=== PATIENT | female | born 1950 | race American Indian/Alaskan Native ===

== ENCOUNTER 2018-06-13 09:00 | Day surgery (SDC) | payer MEDICARE ==
[2018-06-13 09:29] VITALS: O2SAT 100
--- NOTE | 2018-06-13 10:11 | CP.SDSHP ---
Same Day Surgery H & P - History Proposed Procedure: US guided FNA of right upper pole thyroid nodule Pre-Op Diagnosis: right upper pole thyroid nodule - Allergies Allergies: Allergies No Known Allergies Allergy (Verified 05/16/18 09:16) - Physical Exam Vital Signs: Vital Signs 06/13/18 09:14 Temperature 98 F Pulse Rate 64 Respiratory 20 Rate Blood Pressure 137/71 O2 Sat by Pulse 100 Oximetry Mental Status: Alert & Oriented x3 - Impression Impression: Pt with multinodular thyroid. Plan US guided FNA of right upper pole thyroid nodule which has increased in size on recent ultrasound report. Pt. Evaluated Today:Candidate for Anesthesia & Procedure: No - Date & Time Date: 06/13/18 Time: 09:50 Short Stay Discharge - Short Stay Discharge Admitting Diagnosis/Reason for Visit: NONTOXIC MULTINODULAR GOITER Disposition: HOME/ ROUTINE
--- NOTE | 2018-06-13 10:12 | PCM.SURG1 ---
Surgeon's Initial Post Op Note - Surgeon's Notes Surgeon: Kyrie Alfonso MD Computer Security Specialist: NONE Type of Anesthesia: Local Pre-Operative Diagnosis: thyroid nodules Operative Findings: US showed multiple right thyroid nodules and a large 2.2 cm upper pole nodule. Post-Operative Diagnosis: thyroid nodules Operation Performed: US guided FNA Specimen/Specimens Removed: 25 g FNA x 5 passes Estimated Blood Loss: EBL {In ML}: 0 Blood Products Given: N/A Drains Used: No Drains Post-Op Condition: Good Date of Surgery/Procedure: 06/13/18 Time of Surgery/Procedure: 10:10
--- NOTE | 2018-06-13 11:27 | US ---
PROCEDURE: Date of Procedure: 06/13/2018 PROCEDURE: 1. Ultrasound guided FNA of right thyroid nodule, CPT 25834 2. Ultrasound guidance for FNA, 43982 Medications: 3cc 1% Lidocaine HISTORY: Enlarged right thyroid nodule. TECHNIQUE: Following informed consent and procedure time-out, a limited ultrasound patient's neck confirmed the presence of a 2.2 cm complex right upper pole thyroid nodule which is predominantly solid. After the patient's neck was prepped and draped in the usual sterile fashion, the skin was anesthetized with 1% lidocaine. Ultrasound-guided fine needle aspiration was then performed of the dominant right thyroid nodule. A total of 5 passes were made into the nodule with 25 gauge needle under ultrasound guidance. The FNA specimen was sent for routine pathology and genetics . Post biopsy ultrasound showed no hematoma. IMPRESSION: Ultrasound-guided FNA of the dominant right thyroid nodule.
[2018-06-13 11:34] VITALS: BP 141/74; PULSE 59; RESP 16; TEMP 97.5
== END 2018-06-13 11:00 | disposition home or self-care (01) ==
LOC: C.SPRAD 09:00
PROVIDERS: ATTEND Radiology Vascular & Interventional Radiology
DX: E04.2 Nontoxic multinodular goiter (principal)

== ENCOUNTER 2019-02-28 13:16 | Outpatient (CLI) | payer MEDICARE | END 2019-02-28 13:17 | disposition home or self-care (01) | LOC: C.EKG 13:16 | DX: I10 Essential (primary) hypertension (principal) ==